=== PATIENT | male | born 1965 ===

== ENCOUNTER → 2025-03-08 10:45 | Outpatient (REF) | payer OTHER, SELFPAY | LOC: PAVMRI 10:45 | PROVIDERS: ATTENDING PHYSICIAN Orthopaedic Surgery Hand Surgery; FAMILY PHYSICIAN Family Medicine | DX: S63.642A Sprain of metacarpophalangeal joint of left thumb, initial encounter (principal); Y93.64 Activity, baseball | CPT/HCPCS: 73218 ==